=== PATIENT | female | born 1945 | race Caucasian/White ===

== ENCOUNTER 2018-02-24 11:46 | Inpatient (IN) | payer OTHER ==
[~2018-02-24] VITALS: Ht 165.1 cm; Wt 93.4 kg
[~2018-02-24 11:46] MED LIST: ASPIRIN E.C.81 M1 PO; BACTRIM,SEPT1 TABLET PO; CENTRUM SILVER1 EACH PO; CHONDROITIN PO; CIPRO250 MG PO; COLACE100 MG PO; DAILY VALUE1 EACH PO; ECHINACEA HERB380 MG PO; ECHINACEA400 MG PO; FLAGYL500 MG PO; GLUCOS-CHOND 51 EACH PO; GLUCOSAMINE PO; LEVOTHROID,S0.125 MG PO; NORVASC5 MG PO; PRAVACHOL40 MG PO; PRAVASTATIN SOD40 MG PO; PRILOSEC20 MG PO; PROTONIX40 MG PO; PYRIDIUM100 MG PO; SYNTHROID100 MCG PO; TYLENOL REGULA325 MG PO; ZESTORETIC 20-1 EAC1 PO; [UNRECOGNIZED DRUG - OTHER]
[2018-02-24 12:42] LABS: BASOPHIL (%) 0 % (0-1); EOSINOPHIL (%) 0 % (0-5); HEMATOCRIT 40.7 % (36.0-46.0); HEMOGLOBIN 14.2 G/DL (11.9-15.5); IMMATURE GRANULOCYTE (%) 0.3 % (0.0-0.7); LYMPHOCYTE (%) 9.2 % (15-42); LYMPHOCYTE COUNT 0.7 K/uL (1.0-2.8); MCH 30.4 PG (29.0-34.0); MCHC 34.9 G/DL (30.0-36.0); MCV 87.2 FL (83-99); MONOCYTE (%) 10.2 % (3-12); MONOCYTE COUNT 0.7 K/uL (0-0.8); NEUTROPHIL (%) 80.3 % (45-76); NEUTROPHIL COUNT 5.7 K/uL (1.8-6.4); PLATELET COUNT 201 K/uL (156-360); RBC DIS.WIDTH-CV 13.3 % (11.8-14.6); RBC DIS.WIDTH-SD 42.5 % (39-53); RED BLOOD COUNT 4.67 M/uL (3.80-5.20); WHITE BLOOD COUNT 7.1 K/uL (4.1-10.2)
[2018-02-24 12:57] LABS: ALBUMIN 3.9 g/dL (3.2-4.8); CHLORIDE 94 mEq/L (99-109); POTASSIUM 3.1 mEq/L (3.7-5.4); SODIUM 134 mEq/L (136-147)
[2018-02-24 13:00] LABS: GLUCOSE 161 mg/dL (70-99); TOTAL PROTEIN 6.6 g/dL (6.4-8.3)
[2018-02-24 13:02] LABS: TOTAL BILIRUBIN 0.7 mg/dL (0.0-1.0)
[2018-02-24 13:03] LABS: ALKALINE PHOSPHATASE 78 IU/L (3-129); CREATININE 0.9 mg/dL (0.6-1.3); GFR ESTIMATE (CALCULATED) > 59 mL/min/
[2018-02-24 13:04] LABS: UREA NITROGEN (BUN) 25 mg/dL (9-23)
[2018-02-24 13:05] LABS: AST (GOT) 28 IU/L (2-34)
[2018-02-24 13:06] LABS: ALT (GPT) 28 IU/L (3-49)
[2018-02-24 13:07] LABS: LIPASE 59 U/L (1.0-51.0); TROP-I INTERPRETATION NEGATIVE; TROPONIN-I < 0.01 ng/mL (0.0-0.30)
[2018-02-24 14:43] LABS: APPEARANCE CLOUDY ((CLEAR)); BILIRUBIN NEGATIVE; BLOOD NEGATIVE; COLOR AMBER ((YELLOW)); GLUCOSE (STRIP) 50; KETONES 5; LEUKOCYTES SMALL; NITRITE NEGATIVE; PROTEIN (STRIP) 30; SPECIFIC GRAVITY 1.024 (1.000-1.030); UROBILINOGEN 0.2 MG/DL (0.2-1.0)
[2018-02-24 15:14] LABS: RED BLOOD CELLS NONE SEEN /HPF (0-5); WHITE BLOOD CELLS RARE /HPF (0-5)
[2018-02-24 15:15] LABS: BACTERIA 2+ /HPF; EPITHELIAL CELLS 2+ /HPF; MUCUS NONE SEEN /LPF; UCUL ADDED? YES
[2018-02-24] MEDS ORDERED: B-100 COMPLEX100 MG PO (16:20)
[2018-02-24] MEDS ORDERED: POTASSIUM-9999 MG PO (16:20)
[2018-02-24] MEDS ORDERED: METFORMIN HCL500 MG PO (16:20)
[2018-02-24] MEDS ORDERED: LIPITOR40 MG PO (16:20)
[2018-02-24 23:47] VITALS: BP 129/73
[2018-02-25 03:58] VITALS: BP 153/71
[2018-02-25 07:26] LABS: CHLORIDE 98 MEQ/L (99-109); CREATININE 0.8 MG/DL (0.6-1.3); GFR ESTIMATE (CALCULATED) > 59 mL/min/; SODIUM 133 MEQ/L (136-147); UREA NITROGEN (BUN) 20 mg/dL (9-23)
[2018-02-25 07:27] LABS: GLUCOSE 443 mg/dL (70-99); POTASSIUM 4.3 MEQ/L (3.7-5.4)
[2018-02-25 07:42] VITALS: BP 146/85
[2018-02-25 11:25] VITALS: BP 103/58
[2018-02-25 15:07] VITALS: BP 112/59
[2018-02-26 00:05] VITALS: BP 102/59
[2018-02-26 06:55] LABS: CHLORIDE 101 MEQ/L (99-109); CREATININE 0.7 MG/DL (0.6-1.3); GFR ESTIMATE (CALCULATED) > 59 mL/min/; GLUCOSE 272 mg/dL (70-99); POTASSIUM 3.7 MEQ/L (3.7-5.4); SODIUM 135 MEQ/L (136-147); UREA NITROGEN (BUN) 19 mg/dL (9-23)
[2018-02-26 07:15] VITALS: BP 131/63
[2018-02-26 15:18] VITALS: BP 124/69
[2018-02-26 23:36] VITALS: BP 168/70
[2018-02-27 07:36] VITALS: BP 111/66
[2018-02-27 15:38] VITALS: BP 128/56
[2018-02-28 00:12] VITALS: BP 130/65
[2018-02-28 07:55] VITALS: BP 147/80
[2018-02-28 16:25] VITALS: BP 138/61
[2018-03-01 01:07] VITALS: BP 148/75
[2018-03-01 07:42] LABS: CHLORIDE 103 MEQ/L (99-109); CREATININE 0.7 MG/DL (0.6-1.3); GFR ESTIMATE (CALCULATED) > 59 mL/min/; GLUCOSE 72 mg/dL (70-99); POTASSIUM 3.7 MEQ/L (3.7-5.4); SODIUM 139 MEQ/L (136-147); UREA NITROGEN (BUN) 23 mg/dL (9-23)
[2018-03-01 07:59] VITALS: BP 149/69
[2018-03-01] MEDS ORDERED: OSELTAMIVIR PHO30 MG PO (10:53)
[2018-03-01] MEDS ORDERED: DULERA 100 MCG/13 GM IH (10:53)
[2018-03-01] MEDS ORDERED: PREDNISONE20 MG PO (10:53)
[2018-03-01] MEDS ORDERED: DOXYCYCLINE HY100 M3 PO (10:53)
== END 2018-03-01 11:30 | disposition home or self-care (01) | DRG 206 ==
LOC: EME 11:46 → EDOF 18:52 → 2EAST 18:52 → ENRESERV 19:45 → 2EAST 22:46
PROVIDERS: Emergency Medicine; Family Medicine; Internal Medicine Pulmonary Disease
DX: J68.0 Bronchitis and pneumonitis due to chemicals, gases, fumes and vapors (principal); N39.0 Urinary tract infection, site not specified; J10.1 Influenza due to other identified influenza virus with other respiratory manifestations; E87.6 Hypokalemia; E03.9 Hypothyroidism, unspecified; R09.02 Hypoxemia; E11.65 Type 2 diabetes mellitus with hyperglycemia; E78.5 Hyperlipidemia, unspecified; K21.9 Gastro-esophageal reflux disease without esophagitis; E66.9 Obesity, unspecified; Z68.34 Body mass index [BMI] 34.0-34.9, adult; Z79.4 Long term (current) use of insulin; I11.0 Hypertensive heart disease with heart failure; I50.9 Heart failure, unspecified
CPT/HCPCS: 70450; 71046; 71275; 80048; 80053; 81003; 82565; 82948; 83605; 83690; 83880; 84484; 84520; 85025; 87040; 87086; 87502; 93005; 94640; 94640 76; 94760; 94799; 99202; 99281; 99285; J0696; J1650; J1815; J7030; J7512